=== PATIENT | male | born 1990 | race African-American/Black ===

== ENCOUNTER 2019-10-24 22:00 | Emergency (ER) | payer BC, OTHER ==
[2019-10-25] MEDS ORDERED: HYDROCODONE/APAP 10/325 TAB ONE (01:20)
--- NOTE | 2019-10-25 01:40 | ER ---
Nurse's Notes [facility] Name: Jarocho Hall Age: 29 yrs Sex: Male : 1990 Arrival Date: 10/24/2019 Time: 22:01 Bed 15 Private MD: Diagnosis: Pain in ankle and joints of foot Presentation: 10/24 22:03 Presenting complaint: Patient states: "I got arthritis in my ankle, I've been to 2 aj1 doctors and got a steroid shot, but today I can't put any pressure on it, its real tender where the foot and the caal connects" Denies any recent injury to left ankle. Transition of care: patient was not received from another setting of care. Onset of symptoms was 2019. Risk Assessment: Do you want to hurt yourself or someone else? Patient reports no desire to harm self or others. Initial Sepsis Screen: Does the patient meet any 2 criteria? HR > 90 bpm. No. Patient's initial sepsis screen is negative. Does the patient have a suspected source of infection? No. Patient's initial sepsis screen is negative. Care prior to arrival: None. 22:03 Method Of Arrival: Wheelchair aj 22:03 Acuity: SHIRLEY 4 aj1 Triage Assessment: 22:05 General: Appears in no apparent distress. comfortable, Behavior is calm, cooperative, aj1 appropriate for age. Pain: Complains of pain in anterior aspect of left ankle. Neuro: Level of Consciousness is awake, alert, obeys commands. Cardiovascular: Patient's skin is warm and dry. Respiratory: Airway is patent Respiratory effort is even, unlabored, Respiratory pattern is regular, symmetrical. Historical: - Allergies: 22:05 No Known Allergies; aj1 - PMHx: 22:05 pre-diabetic; aj1 - Immunization history:: Flu vaccine is not up to date. - Social history:: Smoking status: Patient reports the use of cigarette tobacco products, denies chronic smoking, but will smoke occasionally. - Ebola Screening: : Patient denies travel to an Ebola-affected area in the 21 days before illness onset. Screenin/18 03:33 Abuse screen: Denies threats or abuse. Nutritional screening: No deficits noted. vc Tuberculosis screening: No symptoms or risk factors identified. Fall Risk None identified. Assessment: 10/24 23:30 General: Appears in no apparent distress. uncomfortable, Behavior is calm, cooperative. vc Pain: Complains of pain in anterior aspect of left ankle Pain currently is 0 out of 10 on a pain scale. at worst was 8 out of 10 on a pain scale. Neuro: Level of Consciousness is awake, alert, obeys commands, Oriented to person, place, time. Cardiovascular: Capillary refill < 3 seconds Patient's skin is warm and dry. Respiratory: Respiratory effort is even, unlabored. GI: No signs and/or symptoms were reported involving the gastrointestinal system. : No deficits noted. EENT: No signs and/or symptoms were reported regarding the EENT system. Derm: Skin is intact, is healthy with good turgor, Skin is dry. Musculoskeletal: Reports pain in anterior aspect of left ankle. 10/25 00:11 Reassessment:. vc 00:15 Reassessment:. Reassessment: Patient and/or family updated on plan of care and expected vc duration. Pain level reassessed. Patient states symptoms have improved. 01:17 Reassessment: Patient complaint of pain to ankle, Provider notified; verbal order for lp1 Reva 10-325 x1 PO. 01:30 Reassessment: Patient is alert, oriented x 3, equal unlabored respirations, skin vc warm/dry/pink. Patient states feeling better. Patient states symptoms have improved. Vital Signs: 10/24 22:05 BP 144 / 92; Pulse 93; Resp 18; Temp 97.8; Pulse Ox 97% on R/A; Weight 136.08 kg (R); aj1 Height 5 ft. 10 in. (177.80 cm) (R); Pain 8/10; 10/25 00:06 BP 131 / 87; Pulse 92; Resp 18; Pulse Ox 97% on R/A; Pain 8/10; vc 01:00 BP 131 / 87; Pulse 79; Resp 15; Pulse Ox 97% on R/A; Pain 8/10; vc 10/24 22:05 Body Mass Index 43.05 (136.08 kg, 177.80 cm) aj1 ED Course: 10/24 22:01 Patient arrived in ED. cl3 22:05 Triage completed. aj1 22:05 Arm band placed on Patient placed in waiting room, Patient notified of wait time. aj1 23:00 Patient has correct armband on for positive identification. vc 23:36 Mickail, Patrice, PA is PHCP. [facility] 23:36 David Avalos MD is Attending Physician. m 23:54 Ankle Left 3 View XRAY In Process Unspecified. EDMS 23:58 Casi Padilla, RN is Primary Nurse. vc 10/25 01:39 Ludin Reardon MD is Referral Physician. [facility] 01:47 No provider procedures requiring assistance completed. Patient did not have IV access vc during this emergency room visit. Administered Medications: 01:19 Drug: Reva 10 mg-325 mg 1 tabs Route: PO; lp1 Outcome: 01:40 Discharge ordered by MD. [facility] 01:47 Discharged to home via wheelchair, with significant other. vc 01:47 Condition: good 01:47 Discharge instructions given to patient, significant other, Instructed on discharge instructions, follow up and referral plans. medication usage, Demonstrated understanding of instructions, follow-up care, medications, Prescriptions given X 1. 01:48 Patient left the ED. vc Signatures: Dispatcher [employer] EDNV Nurys Gonzalez RN RN aj1 Patrice Jones PA PA [facility] Jessica Anna RN RN lp1 Trey Cedeno cl3 Casi Padilla RN RN vc Corrections: (The following items were deleted from the chart) 03:33 00:06 Pulse 92bpm; Pulse Ox 96% RA; Pain 8/10; vc vc
--- NOTE | 2019-10-25 01:40 | EDPHYS ---
Physician Documentation [facility] Name: Jarocho Hall Age: 29 yrs Sex: Male : 1990 Arrival Date: 10/24/2019 Time: 22:01 Bed 15 Private MD: ED Physician David Avalos HPI: 10/25 01:33 This 29 yrs old Black Male presents to ER via Wheelchair with complaints of Ankle jmm Swelling. 01:33 The patient presents with an injury, pain. Onset: The symptoms/episode began/occurred jmm acutely. Associated signs and symptoms: Pertinent positives: swelling, Pertinent negatives: fever. This is a 29 year old male with a history of dm that presents to the ED with complaints of left ankle swelling. Patient has had intermittent episode of ankle swelling. Denies fever, increased pain. Has been evaluated by podiatry in the past. . Historical: - Allergies: 10/24 22:05 No Known Allergies; aj1 - PMHx: 22:05 pre-diabetic; aj1 - Immunization history:: Flu vaccine is not up to date. - Social history:: Smoking status: Patient reports the use of cigarette tobacco products, denies chronic smoking, but will smoke occasionally. - Ebola Screening: : Patient denies travel to an Ebola-affected area in the 21 days before illness onset. ROS: 10/25 01:33 Constitutional: Negative for fever, chills, and weight loss, Cardiovascular: Negative jmm for chest pain, palpitations, and edema, Respiratory: Negative for shortness of breath, cough, wheezing, and pleuritic chest pain. MS/extremity: Positive for pain, swelling. All other systems are negative. Exam: 01:33 Constitutional: This is a well developed, well nourished patient who is awake, alert, jmm and in no acute distress. Head/Face: atraumatic. Eyes: EOMI, no conjunctival erythema appreciated ENT: Moist Mucus Membranes Neck: Trachea midline, Supple Chest/axilla: Normal chest wall appearance and motion. Cardiovascular: Regular rate and rhythm. No edema appreciated Respiratory: Normal respirations, no respiratory distress appreciated Abdomen/GI: Non distended, soft Back: Normal ROM Skin: General appearance color normal 01:33 Musculoskeletal/extremity: swelling noted to the left ankle, non tender to palpation, full dorsalis pulse, compartments are soft, NVI. 01:33 Skin: Appearance: Color: normal in color. 01:33 Neuro: Orientation: is normal, Mentation: is normal, Memory: is normal. 01:33 Psych: Behavior/mood is pleasant, cooperative. Vital Signs: 10/24 22:05 BP 144 / 92; Pulse 93; Resp 18; Temp 97.8; Pulse Ox 97% on R/A; Weight 136.08 kg (R); aj1 Height 5 ft. 10 in. (177.80 cm) (R); Pain 8/10; 10/25 00:06 BP 131 / 87; Pulse 92; Resp 18; Pulse Ox 97% on R/A; Pain 8/10; vc 01:00 BP 131 / 87; Pulse 79; Resp 15; Pulse Ox 97% on R/A; Pain 8/10; vc 10/24 22:05 Body Mass Index 43.05 (136.08 kg, 177.80 cm) aj1 MDM: 00:50 Patient medically screened. [facility] 01:33 Data reviewed: vital signs, nurses notes. Counseling: I had a detailed discussion with iggy the patient and/or guardian regarding: the historical points, exam findings, and any diagnostic results supporting the discharge/admit diagnosis, the need for outpatient follow up, to return to the emergency department if symptoms worsen or persist or if there are any questions or concerns that arise at home. ED course: Patient is alert and non toxic in appearance. I do not suspect spetic joint, ankle is non erythematous. Pain is mainly elicited on weight bearing. Patient advised to follow up with ortho for reevaluation. Patient otherwise given strict return precautions. Patient understood and agrees with the plan of care. . 10/24 23:30 Order name: Ankle Left 3 View XRAY fc Administered Medications: 01:19 Drug: [place] 10 mg-325 mg 1 tabs Route: PO; lp1 Disposition: 06:32 Co-signature as Attending Physician, David Avalos MD. pkl Disposition: 10/25/19 01:40 Discharged to Home. Impression: Pain in ankle and joints of foot. - Condition is Stable. - Discharge Instructions: Ankle Pain. - Prescriptions for Ibuprofen 800 mg Oral Tablet - take 1 tablet by ORAL route every 8 hours As needed take with food; 30 tablet. - Medication Reconciliation Form, Thank You Letter, Antibiotic Education, Prescription Opioid Use form. - Follow up: Ludin Reardon MD; When: 2 - 3 days; Reason: Recheck today's complaints, Continuance of care, Re-evaluation by your physician. Signatures: Dispatcher [employer] Nurys Galss, ALVIN RN aj1 David Avalos MD MD pkl Mickail, Joel, PA PA jmm Pena, Laura, RN RN lp1 Casi Padilla RN RN vc Corrections: (The following items were deleted from the chart) 01:48 01:40 10/25/2019 01:40 Discharged to Home. Impression: Pain in ankle and joints of vc foot. Condition is Stable. Forms are Medication Reconciliation Form, Thank You Letter, Antibiotic Education, Prescription Opioid Use. Follow up: Dr. Ludin Reardon; When: 2 - 3 days; Reason: Recheck today's complaints, Continuance of care, Re-evaluation by your physician. iggy
[2019-10-25 02:01] VITALS: BP 144/92; TEMP 97.8
[2019-10-25 02:02] VITALS: O2SAT 96
--- NOTE | 2019-10-25 07:36 | RAD REPORT ---
EXAM DESCRIPTION: RAD - Ankle Left 3 View -10/24/2019 11:53 pm CLINICAL HISTORY: Left ankle pain FINDINGS: No fracture or dislocation is seen. Soft tissue swelling. No bony destructive lesion
== END 2019-10-25 01:48 | disposition home or self-care (01) ==
LOC: ER 22:00
DX: M25.572 Pain in left ankle and joints of left foot (principal); Z72.0 Tobacco use
CPT/HCPCS: 99283

== ENCOUNTER 2020-07-14 18:23 | Inpatient (IN) | payer BC, SELFPAY ==
[2020-07-14] MEDS ORDERED: NA CHLORIDE 0.9% 2,000 ML ONE (19:03)
[2020-07-14] MEDS ORDERED: INSULIN -REGULAR HUMAN 50 UNIT/0.5 ML ML ONE ×3 (19:27→21:48)
[2020-07-14 19:33] LABS: Blood Gas Oxyhemoglobin 93.5 % (94-97); Blood O2 Saturation 97.1 % (92-98.5)
[2020-07-14 19:47] LABS: Absolute Lymphocytes (CBC) 1.3 K/uL (0.7-4.9); Basophils % 0.5 % (0-1.3); Hematocrit 54.5 % (39.6-49.0); Lymphocytes % 8.4 % (15.3-44.8); MPV 11.1 fL (7.6-11.3); RBC Red Blood Cell Count 7.09 M/uL (4.33-5.43)
--- NOTE | 2020-07-14 19:58 | RAD REPORT ---
EXAM DESCRIPTION: CT - Head Brain Wo Cont - 07/14/2020 7:44 pm CLINICAL HISTORY: CONFUSED Headache, drowsiness COMPARISON: No comparisons TECHNIQUE: All CT scans are performed using dose optimization technique as appropriate and may inclu de automated exposure control or mA/KV adjustment according to patient size. FINDINGS: No intracranial hemorrhage, hydrocephalus or extra-axial fluid collection.No areas of brai n edema or evidence of midline shift. The paranasal sinuses and mastoids are clear. The calvarium is intact. IMPRESSION: No acute intracranial abnormality.
[2020-07-14] MEDS ORDERED: NA CHLORIDE 0.9% 1,000 ML ONE (21:37)
[2020-07-14] MEDS ORDERED: NA CHLORIDE 0.9% 100 ML IV ONE ×2 (21:43→21:49)
[2020-07-14 21:57] LABS: ALT/SGPT 26 U/L (12-78); AST/SGOT 11 U/L (15-37); Albumin 3.4 g/dL (3.4-5.0); Alkaline Phosphatase 151 U/L (45-117); BUN Blood Urea Nitrogen 33 mg/dL (7-18); Bilirubin Direct 0.1 mg/dL (0-0.2); Bilirubin Total 0.4 mg/dL (0.2-1.0); Lipase 177 U/L (73-393); Protein, Total 8.9 g/dL (6.4-8.2); Sodium Level 134 mmol/L (136-145); Troponin I < 0.02 ng/mL (0.0-0.045)
[2020-07-14 21:58] LABS: Bicarbonate 9 mmol/L (21-32); Glucose Level 637 mg/dL (74-106); Potassium 6.1 mmol/L (3.5-5.1)
--- NOTE | 2020-07-14 22:13 | EDPHYS ---
Physician Documentation [facility] Name: Jarocho Hall Age: 29 yrs Sex: Male : 1990 Arrival Date: 07/14/2020 Time: 18:27 Bed 16 Private MD: ED Physician Francis Aguilar HPI: 07/14 18:50 This 29 yrs old Black Male presents to ER via Wheelchair with complaints of General cp Weakness. 18:50 The patient or guardian reports hyperglycemia, that was potentially precipitated by not cp taking medications. 18:50 Onset: The symptoms/episode began/occurred gradually, and became worse 2 day(s) ago. cp Associated signs and symptoms: Pertinent positives: polydipsia, polyphagia, polyuria. Current symptoms: In the emergency department the patient's symptoms have worsened, mildly, is less alert. Historical: - Allergies: 20:23 No Known Allergies; ll2 - Home Meds: 18:55 Metformin Oral [Active]; ca1 - PMHx: 18:55 Diabetes - NIDDM; ca1 - Immunization history:: Adult Immunizations up to date. - Social history:: Smoking status: unknown. ROS: 19:00 Constitutional: Negative for body aches, chills, fever, poor PO intake, weight loss. cp 19:00 Eyes: Negative for injury, pain, redness, and discharge. cp 19:00 ENT: Negative for ear pain, sore throat, difficulty swallowing, difficulty handling secretions. 19:00 Cardiovascular: Negative for chest pain, edema, palpitations. 19:00 Respiratory: Negative for cough, shortness of breath, wheezing. 19:00 Abdomen/GI: Negative for abdominal pain, nausea, vomiting, and diarrhea. 19:00 : Negative for burning with urination. 19:00 Skin: Negative for rash. 19:00 Neuro: Positive for altered mental status, dizziness, Negative for headache, loss of consciousness, seizure activity. 19:00 Endocrine: Positive for polydipsia, polyphagia, polyuria. 19:00 All other systems are negative. Exam: 19:05 Constitutional: The patient appears in no acute distress, non-diaphoretic, non-toxic, cp well developed, well nourished, obese. 19:05 Head/Face: Normocephalic, atraumatic. cp 19:05 Eyes: Periorbital structures: appear normal, Pupils: equal, round, and reactive to light and accomodation, Extraocular movements: intact throughout, Conjunctiva: normal, no exudate, no injection, Sclera: no appreciated abnormality, Lids and lashes: appear normal, bilaterally. 19:05 ENT: External ear(s): are unremarkable, Nose: is normal, Mouth: is normal, Posterior pharynx: Airway: no evidence of obstruction, patent. 19:05 Neck: ROM/movement: is normal, is supple, without pain, no range of motions limitations. 19:05 Chest/axilla: Inspection: normal, Palpation: is normal, no crepitus, no tenderness. 19:05 Cardiovascular: Rate: tachycardic, Rhythm: regular, Edema: is not appreciated, JVD: is not appreciated. 19:05 Respiratory: the patient does not display signs of respiratory distress, Respirations: normal, no use of accessory muscles, no retractions, labored breathing, is not present, Breath sounds: are clear throughout, no decreased breath sounds, no stridor, no wheezing. 19:05 Abdomen/GI: Inspection: abdomen appears normal, Bowel sounds: active, all quadrants, Palpation: abdomen is soft and non-tender, in all quadrants. 19:05 Skin: no rash present. 19:05 Neuro: Orientation: to person, place, situation, Mentation: responsive to voice able to follow commands, slow to respond, Cerebellar function: Romberg testing is negative, normal finger to nose testing, Motor: moves all fours, strength is normal, Sensation: no obvious gross deficits. 19:40 ECG was reviewed by the Attending Physician. cp Vital Signs: 18:37 BP 150 / 97; Pulse 137; Resp 20 S; Temp 98.3(O); Pulse Ox 100% on R/A; Height 5 ft. 10 ca1 in. (177.80 cm) (R); 19:09 BP 152 / 79; Pulse 125; Resp 25; Pulse Ox 96% ; ll2 MDM: 18:54 Patient medically screened. cp 19:00 Differential diagnosis: DKA, sepsis, COVID-19. cp 22:09 Data reviewed: vital signs, nurses notes, lab test result(s), EKG, and as a result, I cp will admit patient. Test interpretation: by ED physician or midlevel provider: ECG. Response to treatment: the patient's symptoms have mildly improved after treatment. 22:10 Physician consultation: Yony HILLS was contacted at 22:10, regarding cp admission, to the ICU, patient's condition, and will see patient in ED, shortly. 07/14 18:52 Order name: Glucose; Complete Time: 22:06 tw2 07/14 18:55 Order name: Glucose, Ancillary Testing; Complete Time: 18:58 EDMS 07/14 18:58 Order name: Ketone, Serum; Complete Time: 22:06 cp 07/14 18:58 Order name: Basic Metabolic Panel; Complete Time: 22:06 cp 07/14 18:58 Order name: CBC with Diff; Complete Time: 20:02 cp 07/14 20:02 Interpretation: Normal except: WBC 15.9; RBC 7.09; HCT 54.5; MCV 76.9; MCH 23.1; MCHC cp 30.1; AGUSTÍN% 83.0; LYM% 8.4; NEUT A 13.2. 07/14 18:58 Order name: Hepatic Function; Complete Time: 22:06 cp 07/14 18:58 Order name: Lipase; Complete Time: 22:06 07/14 18:58 Order name: ABG; Complete Time: 20:02 cp 07/14 18:58 Order name: Urine Microscopic Only 07/14 18:58 Order name: UDS 07/14 18:58 Order name: Troponin I; Complete Time: 22:06 cp 07/14 22:04 Order name: Glucose, Ancillary Testing; Complete Time: 22:06 EDMS 07/14 22:40 Order name: Glucose, Ancillary Testing; Complete Time: 23:47 EDMS 07/14 22:42 Order name: Glucose; Complete Time: 23:47 ea 07/14 18:43 Order name: Accucheck Blood Glucose; Complete Time: 18:52 cp 07/14 18:58 Order name: IV; Complete Time: 19:03 cp 07/14 18:58 Order name: IV; Complete Time: 19:11 07/14 18:58 Order name: Labs collected and sent; Complete Time: 19:03 cp 07/14 18:58 Order name: CT Head Brain wo Cont; Complete Time: 20:02 cp 07/14 20:02 Interpretation: Report reviewed. 07/14 18:58 Order name: EKG; Complete Time: 18:59 cp 07/14 18:58 Order name: EKG - Nurse/Tech; Complete Time: 21:05 cp 07/14 23:08 Order name: Acetone Level; Complete Time: 23:47 EDMS 07/14 23:24 Order name: Basic Metabolic Panel; Complete Time: 23:47 EDMS 07/15 00:02 Order name: Glucose, Ancillary Testing EDMS 07/14 19:18 Order name: Labs - recollect needed: Green Top hemolyzed; Complete Time: 19:25 iw EC:40 Rate is 128 beats/min. Rhythm is regular. SC interval is normal. QRS interval is cp normal. QT interval is normal. T waves are Inverted in lead III. Interpreted by me. Reviewed by me. Administered Medications: 19:00 Drug: NS 0.9% 1000 ml Route: IV; Rate: 1 bolus; Site: right antecubital; tw2 19:03 Drug: NS 0.9% 1000 ml Route: IV; Rate: 1 bolus; Site: left antecubital; tw2 19:18 Drug: Insulin Regular Human 10 units {Co-Signature: bb3 (Audrey Bailey).} Route: Sub-Q; ll2 Site: abdomen; 19:25 Follow up: Response: No adverse reaction ll2 21:48 Drug: Insulin Drip - (Insulin Regular Human 100 units, NS 0.9% 100 ml) {Co-Signature: ll2 ea (Ellie Spaulding RN).} Route: IV; Rate: 7 calculated rate; Site: right hand; 22:00 Drug: NS 0.9% 1000 ml Route: IV; Rate: 1 bolus; Site: left antecubital; ll2 Point of Care Testing: Blood Glucose: 21:56 Blood Glucose: High (>450 mg/dL); ll2 22:29 Blood Glucose: High (>450 mg/dL); ll2 23:48 Blood Glucose: High (>450 mg/dL); ll2 Ranges: Critical Glucose Levels:Adult <50 mg/dl or >400 mg/dl <40 mg/dl or >180 mg/dl Disposition: 07/15 07:16 Co-signature as Attending Physician, Francis Aguilar MD. rn Disposition: 07/14/20 22:12 Hospitalization ordered by Yony Cash for Inpatient Admission. Preliminary diagnosis are Diabetes mellitus due to underlying condition with ketoacidosis without coma, Acute kidney failure. - Bed requested for Intensive Care Unit. - Status is Inpatient Admission. ll2 - Condition is Serious. - Problem is new. - Symptoms have improved. Signatures: Dispatcher [employer] EDTatyana Whittington, RN RN iw Francis Aguilar MD MD rn Page, Corey, PA PA Miya Owen RN RN tw2 Belinda Diaz RN RN ca1 Sharon Mendez RN RN ll2 Audrey Bailey bb3 Ellie Spaulding RN, ea Corrections: (The following items were deleted from the chart) 07/14 23:49 07/13 19:40 ECG was reviewed by the Attending Physician. [facility] 07/14 23:49 07/13 19:40 Rate is 128 beats/min. Rhythm is regular. SC interval is normal. QRS cp interval is normal. QT interval is normal. T waves are Inverted in lead III. Interpreted by me. Reviewed by me. 07/15 00:11 07/14 22:12 Hospitalization Ordered by Yony HILLS for Inpatient Admission. ll2 Preliminary diagnosis is Diabetes mellitus due to underlying condition with ketoacidosis without coma; Acute kidney failure. Bed requested for Intensive Care Unit. Status is Inpatient Admission. Condition is Serious. Problem is new. Symptoms have improved. cp
--- NOTE | 2020-07-14 22:13 | ER ---
Nurse's Notes [facility] Name: Jarocho Hall Age: 29 yrs Sex: Male : 1990 Arrival Date: 07/14/2020 Time: 18:27 Bed 16 Private MD: Diagnosis: Diabetes mellitus due to underlying condition with ketoacidosis without coma;Acute kidney failure Presentation: 07/14 18:37 Chief complaint:. Chief complaint: Patient states: Feeling bad since 2 weeks ago. 2 ca1 days ago, increase thirst, urination and hunger. Pt reports NIDDM. BGL checked in triage HI. Reports feeling dizzy and weak. Pt appears lethargic. Denies cough, SOB and fever. Denies pain. Denies urinary symptoms. 18:37 Method Of Arrival: Wheelchair ca1 18:37 Acuity: SHIRLEY 2 ca1 18:52 Coronavirus screen: Client denies travel out of the [place] in the last 14 days. At this ca1 time, the client does not indicate any symptoms associated with coronavirus-19. Ebola Screen: Patient negative for fever greater than or equal to 101.5 degrees Fahrenheit, and additional compatible Ebola Virus Disease symptoms Patient denies exposure to infectious person. Patient denies travel to an Ebola-affected area in the 21 days before illness onset. No symptoms or risks identified at this time. Initial Sepsis Screen: Does the patient meet any 2 criteria? Altered Mental Status. HR > 90 bpm. Yes Does the patient have a suspected source of infection? No. Patient's initial sepsis screen is negative. Risk Assessment: Do you want to hurt yourself or someone else? Patient reports no desire to harm self or others. Onset of symptoms was July 14, 2020. Triage Assessment: 07/15 00:11 General: Appears in no apparent distress. Behavior is calm, cooperative, appropriate ll2 for age. Historical: - Allergies: 07/14 20:23 No Known Allergies; ll2 - Home Meds: 18:55 Metformin Oral [Active]; ca1 - PMHx: 18:55 Diabetes - NIDDM; ca1 - Immunization history:: Adult Immunizations up to date. - Social history:: Smoking status: unknown. Screenin:43 Abuse screen: Denies threats or abuse. Nutritional screening: No deficits noted. tw2 Tuberculosis screening: No symptoms or risk factors identified. Fall Risk None identified. Assessment: 18:50 Reassessment: provider at bedside at this time. tw2 20:22 Reassessment: pt's family states there are no known drug or food allergies. ll2 21:52 Reassessment: FSBS reads HIGH, above 500. ERD notified. ll2 22:00 Reassessment: lab called with critical lab results, K- 60.1 bicarb-9, Glucose 637. ERD ll2 notified. 22:11 Reassessment: weight obtained, 322.96. ll2 22:29 Reassessment: ERP notified of weight, order obtained to increase insulin drip from 7 to ll2 10. 07/15 00:10 Reassessment: report given to ALVIN Cano. ll2 00:10 Pain: Denies pain. ll2 Vital Signs: 07/14 18:37 BP 150 / 97; Pulse 137; Resp 20 S; Temp 98.3(O); Pulse Ox 100% on R/A; Height 5 ft. 10 ca1 in. (177.80 cm) (R); 19:09 BP 152 / 79; Pulse 125; Resp 25; Pulse Ox 96% ; ll2 ED Course: 18:27 Patient arrived in ED. ag5 18:42 Triage completed. ca1 18:43 Miya Owen RN is Primary Nurse. tw2 18:43 Jordan Sanabria PA is PHCP. cp 18:43 Francis Aguilar MD is Attending Physician. cp 18:43 Placed in gown. Bed in low position. Adult w/ patient. Pulse ox on. NIBP on. tw2 18:48 Inserted saline lock: 20 gauge in left antecubital area, using aseptic technique. Blood tw2 collected. 18:51 Arm band placed on. tw2 19:05 Report given to ALVIN Argueta. tw2 19:11 Inserted saline lock: 22 gauge in right hand, using aseptic technique. tw2 19:44 CT Head Brain wo Cont In Process Unspecified. EDMS 22:10 Yony Cash PA is Hospitalizing Provider. cp 07/15 00:11 No provider procedures requiring assistance completed. Patient admitted, IV remains in ll2 place. Administered Medications: 07/14 19:00 Drug: NS 0.9% 1000 ml Route: IV; Rate: 1 bolus; Site: right antecubital; tw2 19:03 Drug: NS 0.9% 1000 ml Route: IV; Rate: 1 bolus; Site: left antecubital; tw2 19:18 Drug: Insulin Regular Human 10 units {Co-Signature: bb3 (Audrey Bailey).} Route: Sub-Q; ll2 Site: abdomen; 19:25 Follow up: Response: No adverse reaction ll2 21:48 Drug: Insulin Drip - (Insulin Regular Human 100 units, NS 0.9% 100 ml) {Co-Signature: ll2 ea (Ellie Spaulding RN).} Route: IV; Rate: 7 calculated rate; Site: right hand; 22:00 Drug: NS 0.9% 1000 ml Route: IV; Rate: 1 bolus; Site: left antecubital; ll2 Point of Care Testing: Blood Glucose: 21:56 Blood Glucose: High (>450 mg/dL); ll2 22:29 Blood Glucose: High (>450 mg/dL); ll2 23:48 Blood Glucose: High (>450 mg/dL); ll2 Ranges: Outcome: 22:12 Decision to Hospitalize by Provider. cp 07/15 00:10 Admitted to ICU accompanied by nurse, via wheelchair, Report called to ALVIN Cano ll2 Condition: stable Instructed on the need for admit. 00:11 Patient left the ED. ll2 Signatures: Dispatcher [employer] EDMS Jordan Sanabria PA PA cp Miya Owen, RN RN tw2 Belinda Diaz RN RN ca1 Abel, Abner ag5 Sharon Mendez RN RN ll2 Audrey Bailey bb3 Ellie Spaulding RN ea Corrections: (The following items were deleted from the chart) 07/14 18:54 18:37 Chief complaint: Patient states: Feeling bad since 2 weeks ago. 2 days ago, ca1 increase thirst, urination and hunger. Pt reports NIDDM. BGL checked in triage HI. Reports feeling dizzy and week ca1
--- NOTE | 2020-07-14 22:46 | P.HP ---
Certification for Inpatient Patient admitted to: Inpatient With expected LOS: >2 Midnights Patient will require the following post-hospital care: None Practitioner: I am a practitioner with admitting privileges, knowledge of patient current condition, hospital course, and medical plan of care. Services: Services provided to patient in accordance with Admission requirements found in Title 42 Section 412.3 of the Code of Federal Regulations Patient History Date of Service: 07/14/20 Reason for admission: DKA History of Present Illness: 29-year-old male with a past medical history of type 2 diabetes and noncompliance with medications who also smokes a pack of cigarettes a day and drinks daily is brought to the emergency room with complaints of feeling "bad" for the past 2 weeks. States that he is a diabetic but does not take his medications and has not taken his medications for quite some time. Also admits to smoking daily and drinking daily. Patient is also morbidly obese. In the emergency room patient is alert and oriented x3. He is in no distress. Family member bedside. Lab work shows a white cell count of 15.9, sodium of 134, potassium of 6.1, chlorine of 97, a BUN of 33, creatinine of 2.59 with a GFR of 35. Blood glucose was measured at 637 with large acetones noted. ABG shows acidosis with a pH of 7.16, pCO2 of 13.6, PO2 130 and a bicarb of 4.6. Calculated anion gap of 28. Patient is in DKA. Patient will be admitted to the ICU and further evaluated. Home medications list reviewed: No - Past Medical/Surgical History Diabetic: Yes -: Type 2 diabetes mellitus -: Noncompliance with medications -: Nicotine dependence -: None Psychosocial/ Personal History: Lives at home. - Family History Family History: Reviewed- Non-Contributory - Social History Smoking Status: Current every day smoker Alcohol use: Yes CD- Drugs: No Caffeine use: Yes Place of Residence: Home Review of Systems General: As per HPI Eyes: Unremarkable ENT: Unremarkable Respiratory: Unremarkable Cardiovascular: Unremarkable Gastrointestinal: Nausea, As per HPI Genitourinary: Frequency, As per HPI Musculoskeletal: Unremarkable Integumentary: Unremarkable Neurological: Unremarkable Lymphatics: Unremarkable Physical Examination - Vital Signs Temperature: 98.3 F Blood Pressure: 152/79 Pulse: 125 Respirations: 25 Pulse Ox (%): 96 (RA) - Physical Exam General: Alert, In no apparent distress, Oriented x3 HEENT: Atraumatic, Normocephalic, PERRLA, Mucous membr. moist/pink Neck: Supple, No Thyromegaly, Other (Trachea midline) Respiratory: Clear to auscultation bilaterally, Normal air movement Cardiovascular: No edema, Normal pulses, Normal S1 S2 Capillary refill: <2 Seconds Gastrointestinal: Normal bowel sounds, Soft and benign, Non-distended Musculoskeletal: No clubbing, No swelling, No contractures, No erythema Integumentary: No rashes, No breakdown, No significant lesion Neurological: Normal gait, Normal speech, Normal strength at 5/5 x4 extr, Normal tone - Studies Laboratory Data (last 24 hrs) 07/14/20 21:20: Sodium 134 L, Potassium 6.1 H*, BUN 33 H, Creatinine 2.59 H, Glucose 637 H*, Total Bilirubin 0.4, AST 11 L, ALT 26, Alkaline Phosphatase 151 H, Troponin I < 0.02, Lipase 177 07/14/20 21:20: Glucose 625 H* 07/14/20 18:49: WBC 15.9 H, Hgb 16.4, Hct 54.5 H, Plt Count 382 Assessment and Plan - Plan Impression: Diabetic ketoacidosis with a history of noncompliance with diabetic medications: Acute kidney injury: Type 2 diabetes mellitus: Nicotine dependence: Alcohol abuse: Plan: Diabetic ketoacidosis with a history of noncompliance with diabetic medications: ABG shows patient is acidotic with a pH of 7.16. Will be placed in ICU. Started on an insulin drip, continue IV fluids. Patient received 3 L in the ER. Will place on telemetry. Check chemistries Q 4 hr Monitor blood glucose. Acute kidney injury: Patient noted have an elevated creatinine of 2.59. Will continue IV fluids as above. Monitor creatinine levels. Type 2 diabetes mellitus: History of type 2 diabetes with noncompliance with medications. Patient states he has not taken his diabetic medications for several months. Will resume all medications once verified. Check blood glucose Q hourly. Continue sliding scale insulin. Nicotine dependence: Admits to smoking half pack of cigarettes per day. Counseled. Alcohol abuse: Admits to drinking beers every day. Counseled. Discharge Plan: Home Plan to discharge in: Greater than 2 days - Advance Directives Does patient have a Living Will: No Does patient have a Durable POA for Healthcare: No - Code Status/Comfort Care Code Status Assessed: Yes Time Spent Managing Pts Care (In Minutes): 55
[2020-07-14] MEDS ORDERED: ONDANSETRON 4 MG/2 ML VIAL IV PRN (22:48)
[2020-07-14] MEDS: D5 0.45 NS 1,000 ML IV SCH (23:00)
[2020-07-14 23:21] LABS: BUN Blood Urea Nitrogen 37 mg/dL (7-18); Sodium Level 137 mmol/L (136-145)
[2020-07-14 23:22] LABS: Bicarbonate 6 mmol/L (21-32); Glucose Level 564 mg/dL (74-106)
[2020-07-15] MEDS: NACHLORIDE 0.45% 1,000 ML IV SCH ×5 (02:53→16:40)
[2020-07-15] MEDS ORDERED: NACHLORIDE 0.45% 1,000 ML IV ONE ×2 (03:05→06:17)
[2020-07-15 03:31] LABS: Absolute Lymphocytes (CBC) 1.6 K/uL (0.7-4.9); Basophils % 0.4 % (0-1.3); Lymphocytes % 7.6 % (15.3-44.8); MPV 9.8 fL (7.6-11.3); RBC Red Blood Cell Count 6.69 M/uL (4.33-5.43)
[2020-07-15 03:43] LABS: BUN Blood Urea Nitrogen 35 mg/dL (7-18); Glucose Level 337 mg/dL (74-106); HDL Cholesterol 34 mg/dL (40-60); Sodium Level 143 mmol/L (136-145)
[2020-07-15 03:44] LABS: Bicarbonate 12 mmol/L (21-32); Magnesium 2.9 mg/dL (1.8-2.4); Potassium 4.9 mmol/L (3.5-5.1)
[2020-07-15 03:54] LABS: LDL, Direct 168 mg/dL (100-129)
[2020-07-15 05:01] LABS: Blood Morphology Comment NOT SEEN (NOT SEEN); Platelet Estimate ADEQ
[2020-07-15] MEDS: D5 0.45 NS 1,000 ML IV SCH (05:40)
[2020-07-15] MEDS ORDERED: NA CHLORIDE 0.9% 250 ML ONE (05:52)
[2020-07-15 06:08] LABS: Urine Appearance CLEAR; Urine Blood 1+ (NEG); Urine Color YELLOW; Urine Glucose 3+ (NEG); Urine Protein 1+ (NEG); Urine Specific Gravity 1.025 (1.005-1.030); Urine Urobilinogen 0.2 mg/dL (0.2-1.0)
[2020-07-15] MEDS ORDERED: NA CHLORIDE 0.9% 500 ML ONE (06:17)
[2020-07-15] MEDS: CEFTRIAXONE/SWI 1gm 1 GM/10 ML SYR IV SCH (06:25)
[2020-07-15] MEDS: AZITHROMYCIN IV 500 MG in NA CHLORIDE 0.9% 250 ML IVPB SCH (06:32)
[2020-07-15 06:51] LABS: Urine Bilirubin 1+ (NEG)
[2020-07-15 07:06] LABS: Urine Bacteria <20 /HPF (NONE SEEN); Urine RBC NONE SEEN /HPF (NONE SEEN)
[2020-07-15 07:07] LABS: Urine Culture Reflex Order NOT NEEDED
[2020-07-15] MEDS ORDERED: INSULIN -REGULAR HUMAN 50 UNIT/0.5 ML ML SQ SCH (07:30)
[2020-07-15 07:45] LABS: BUN Blood Urea Nitrogen 31 mg/dL (7-18); Glucose Level 279 mg/dL (74-106); Sodium Level 144 mmol/L (136-145)
[2020-07-15 07:48] LABS: Bicarbonate 13 mmol/L (21-32); Potassium 4.6 mmol/L (3.5-5.1)
[2020-07-15] MEDS: INSULIN -REGULAR HUMAN 100 UNIT in NA CHLORIDE 0.9% 100 ML IV SCH ×2 (08:03→23:08)
--- NOTE | 2020-07-15 08:05 | RAD REPORT ---
EXAM DESCRIPTION: RAD - Chest Single View - 07/15/2020 5:28 am CLINICAL HISTORY: elevated WBC COMPARISON: None TECHNIQUE: AP portable chest image was obtained 07/15/2020 5:28 am . FINDINGS: Lungs are clear. Heart and vasculature are normal. No measurable pleural effusion and no p neumothorax. No acute bony abnormality seen. No acute aortic findings suspected. IMPRESSION: No acute cardiopulmonary process.
[2020-07-15] MEDS ORDERED: CEFTRIAXONE 1 GM/NS 50 ML 1 GM/50 ML BAG IV SCH (09:00)
[2020-07-15] MEDS: HEPARIN 5000 UNIT/ML 1 ML VIAL SQ SCH ×2 (10:02→20:20)
[2020-07-15] MEDS ORDERED: HEPARIN 5000 UNIT/ML 1 ML VIAL ONE ×2 (10:10→20:16)
--- NOTE | 2020-07-15 10:22 | P.PN ---
Subjective Date of Service: 07/15/20 Chief Complaint: DKA Subjective: Improving Physical Examination - Vital Signs Temperature: 98.2 F Blood Pressure: 142/96 Pulse: 135 Respirations: 22 Pulse Ox (%): 97 - Physical Exam General: In no apparent distress, Obese HEENT: Atraumatic, Normocephalic, PERRLA, EOMI Neck: Supple Respiratory: Clear to auscultation bilaterally, Normal air movement Cardiovascular: No edema, Normal pulses, Regular rate/rhythm, Normal S1 S2 Gastrointestinal: Normal bowel sounds, Soft and benign, Non-distended Musculoskeletal: No clubbing, No swelling, No contractures, No erythema, No tenderness, No warmth Integumentary: No rashes, No breakdown, No significant lesion, No tenderness/swelling, No erythema, No warmth, No cyanosis Neurological: Normal speech, Sensation intact, Normal affect - Studies Laboratory Data (last 24 hrs) 07/14/20 21:20: Sodium 134 L, Potassium 6.1 H*, BUN 33 H, Creatinine 2.59 H, Glucose 637 H*, Total Bilirubin 0.4, AST 11 L, ALT 26, Alkaline Phosphatase 151 H, Troponin I < 0.02, Lipase 177 07/14/20 21:20: Glucose 625 H* 07/14/20 18:49: WBC 15.9 H, Hgb 16.4, Hct 54.5 H, Plt Count 382 Assessment & Plan - Problems (Diagnosis) (1) DKA (diabetic ketoacidoses) Current Visit: Yes Status: Acute (2) Morbid obesity with BMI of 45.0-49.9, adult Current Visit: Yes Status: Acute (3) SARAH (acute kidney injury) Current Visit: Yes Status: Acute Physician Review Additional Text: Assessment Patient is a 29-year-old male with morbid obesity, diabetes mellitus noncompliant with medications. He is currently admitted with DKA. He is on insulin drip. Severe and rising leukocytosis on admission. Chest x-ray and UA negative to date. There is a blood culture pending DKA SIRS Tachycardia Medication noncompliance Morbid obesity PLAN CONTINUE ICU STAY PATIENT IS ON INSULIN INFUSION Monitor fingerstick hourly and BMP q.4 hr EKG Check lactic acidosis Follow-up blood cultures
--- NOTE | 2020-07-15 19:19 | P.CNS ---
Date of Consult: 07/15/20 Reason for Consult: SARAH Requesting Physician: Prince Tatianna Hess Chief Complaint: DKA History of Present Illness: 29 yo BM Obese, DM presented to the ER with two weeks of severe, progressive malaise in the setting of uncontrolled DM due to poor compliance with his medications. Poor historian. More history obtained from the girlfriend. 29-year-old male with a past medical history of type 2 diabetes and noncompliance with medications who also smokes a pack of cigarettes a day and drinks daily is brought to the emergency room with complaints of feeling "bad" for the past 2 weeks. States that he is a diabetic but does not take his medications and has not taken his medications for quite some time. Also admits to smoking daily and drinking daily. Patient is also morbidly obese. Allergies No Known Allergies Allergy (Verified 07/15/20 01:03) Home medications list reviewed: Yes Home Medications: NK [No Home Meds] 07/15/20 - Past Medical/Surgical History Diabetic: Yes -: Type 2 diabetes mellitus -: Noncompliance with medications -: Nicotine dependence -: None Psychosocial/ Personal History: Lives at home. - Family History Father Medical History: Hypertension, Diabetes Brother Medical History: Hypertension, Lung disease Notes: asthma Mother Medical History: Hypertension - Social History Smoking Status: Unknown if ever smoked Alcohol use: Yes CD- Drugs: No Caffeine use: No Place of Residence: Home Review of Systems 10-point ROS is otherwise unremarkable General: Weakness, Malaise Gastrointestinal: Nausea Neurological: Weakness Physical Examination Temp Pulse Resp BP Pulse Ox 98.5 F 118 H 22 H 137/91 H 99 07/15/20 18:00 07/15/20 18:00 07/15/20 18:00 07/15/20 18:00 07/15/20 18:00 General: Alert, Oriented x3, Cooperative HEENT: Atraumatic Neck: Supple Respiratory: Clear to auscultation bilaterally Cardiovascular: No edema, Regular rate/rhythm Gastrointestinal: Soft and benign, Non-distended Musculoskeletal: No clubbing, No contractures Integumentary: No rashes, No cyanosis Neurological: Normal speech Laboratory Data (last 24 hrs) 07/14/20 21:20: Sodium 134 L, Potassium 6.1 H*, BUN 33 H, Creatinine 2.59 H, Glucose 637 H*, Total Bilirubin 0.4, AST 11 L, ALT 26, Alkaline Phosphatase 151 H, Troponin I < 0.02, Lipase 177 07/14/20 21:20: Glucose 625 H* 07/14/20 18:49: WBC 15.9 H, Hgb 16.4, Hct 54.5 H, Plt Count 382 Imagings Data: EXAM DESCRIPTION: RAD - Chest Single View - 07/15/2020 5:28 am CLINICAL HISTORY: elevated WBC COMPARISON: None TECHNIQUE: AP portable chest image was obtained 07/15/2020 5:28 am . FINDINGS: Lungs are clear. Heart and vasculature are normal. No measurable pleural effusion and no pneumothorax. No acute bony abnormality seen. No acute aortic findings suspected. IMPRESSION: No acute cardiopulmonary process. Conclusions/Impression: A/ SARAH improving with IVF Hyponatremia Hyperkalemia Hypocalcemia CKD III with proteinuria DM II with DKA Morbid Obesity Nicotine dependence P/ Continue current POC and Medications. Continue aggressive IVF. Continue insulin gtt. No NSAIDs. AM labs. Daily weight. Thank you kindly for the consultation. Critical Care: Yes (>30min)
[2020-07-15 21:27] LABS: Potassium 4.2 mmol/L (3.5-5.1)
[2020-07-16] MEDS: NACHLORIDE 0.45% 1,000 ML IV SCH (00:22)
[2020-07-16] MEDS ORDERED: NACHLORIDE 0.45% 1,000 ML IV ONE (00:33)
[2020-07-16] MEDS: D5 0.45 NS 1,000 ML IV SCH ×4 (00:38→23:00)
[2020-07-16] MEDS ORDERED: D5 0.45 NS 1,000 ML IV ONE ×2 (00:49→16:35)
[2020-07-16 02:09] LABS: Potassium 4.1 mmol/L (3.5-5.1)
[2020-07-16 02:46] LABS: Barbiturates NEGATIVE (NEGATIVE); Benzodiazepines NEGATIVE (NEGATIVE); Cocaine NEGATIVE (NEGATIVE); METHAMPHETAM NEGATIVE (NEGATIVE); Methadone NEGATIVE (NEGATIVE); Opiates NEGATIVE (NEGATIVE); Phencyclidine NEGATIVE (NEGATIVE); THC Cannibis NEGATIVE (NEGATIVE)
[2020-07-16 05:53] LABS: Absolute Lymphocytes (CBC) 2.3 K/uL (0.7-4.9); Basophils % 0.5 % (0-1.3); Hematocrit 39.8 % (39.6-49.0); MPV 9.1 fL (7.6-11.3); RBC Red Blood Cell Count 5.55 M/uL (4.33-5.43)
[2020-07-16 05:58] LABS: Magnesium 2.4 mg/dL (1.8-2.4); Phosphorus 1.4 mg/dL (2.5-4.9)
[2020-07-16 06:00] LABS: Potassium 3.8 mmol/L (3.5-5.1)
[2020-07-16] MEDS: CEFTRIAXONE/SWI 1gm 1 GM/10 ML SYR IV SCH (06:17)
[2020-07-16] MEDS: AZITHROMYCIN IV 500 MG in NA CHLORIDE 0.9% 250 ML IVPB SCH (06:17)
[2020-07-16] MEDS ORDERED: CEFTRIAXONE/SWI 1gm 1 GM/10 ML SYR ONE (06:28)
[2020-07-16] MEDS: POTASS/SODIUM PHOSPHATE 1 PKT POWD.PACK PO SCH ×5 (07:00→14:00)
[2020-07-16] MEDS: HEPARIN 5000 UNIT/ML 1 ML VIAL SQ SCH ×2 (09:00→20:20)
[2020-07-16] MEDS ORDERED: HEPARIN 5000 UNIT/ML 1 ML VIAL ONE ×2 (09:07→20:26)
[2020-07-16] MEDS: DOCUSATE NA 100 MG CAP PO SCH ×2 (09:10→20:39)
[2020-07-16] MEDS: VITAMIN D 5,000 UNIT CAP PO SCH (09:10)
[2020-07-16] MEDS ORDERED: POTASSIUM PHOS 30 MM in NA CHLORIDE 0.9% 500 ML IV ONE (09:25)
[2020-07-16 09:56] LABS: Potassium 3.7 mmol/L (3.5-5.1)
--- NOTE | 2020-07-16 10:59 | P.PN ---
Subjective Date of Service: 07/16/20 Chief Complaint: DKA Subjective: Improving (Patient's DKA is improving. c/o of bilateral ankle joint pain when standing for too long.) Physical Examination - Vital Signs Temperature: 98.8 F Blood Pressure: 132/62 Pulse: 105 Respirations: 20 Pulse Ox (%): 99 - Physical Exam General: In no apparent distress, Cooperative, Other (sleeping) HEENT: Atraumatic, Normocephalic, EOMI Neck: Supple Respiratory: Clear to auscultation bilaterally, Normal air movement Cardiovascular: No edema, Normal pulses, Regular rate/rhythm, Normal S1 S2 Gastrointestinal: Normal bowel sounds, Soft and benign, Non-distended, No tenderness Musculoskeletal: No clubbing, No swelling, No contractures, No erythema, No tenderness, No warmth Integumentary: No rashes, No breakdown, No significant lesion, No tenderness/swelling, No erythema, No warmth, No cyanosis Neurological: Normal speech, Sensation intact, Normal affect Assessment & Plan - Problems (Diagnosis) (1) DKA (diabetic ketoacidoses) Current Visit: Yes Status: Acute (2) Morbid obesity with BMI of 45.0-49.9, adult Current Visit: Yes Status: Acute (3) SARAH (acute kidney injury) Current Visit: Yes Status: Acute Physician Review Additional Text: Assessment Patient is a 29-year-old male with morbid obesity, diabetes mellitus noncompliant with medications. He is currently admitted with DKA. He is on insulin drip. Severe and rising leukocytosis on admission. Chest x-ray, blood cultures and UA negative to date. DKA SIRS with organ damage SARAH Medication noncompliance Morbid obesity PLAN Patient is still on insulin drip DKA likely resolved given today's improved. Persistent high AG most likely for concurrent SARAH If ketosis resolved, I will transition him to scheduled insulin Until then, continue monitoring fingerstick hourly and BMP q.4 hr
--- NOTE | 2020-07-16 11:59 | RAD REPORT ---
EXAM DESCRIPTION: RAD - Ankle Right 3 View - 07/16/2020 11:42 am CLINICAL HISTORY: joint pain Pain and swelling. COMPARISON: Ankle Left 3 View dated 10/24/2019 FINDINGS: Mild arthritic changes are present involving the tibiotalar joint. Mild soft tissue swelli ng about the ankle. Prominent posterior calcaneal spur is evident. No acute fracture or dislocation s een.
--- NOTE | 2020-07-16 11:59 | RAD REPORT ---
EXAM DESCRIPTION: RAD - Ankle Left 3 View - 07/16/2020 11:42 am CLINICAL HISTORY: joint pain Pain and swelling COMPARISON: Ankle Left 3 View dated 10/24/2019 FINDINGS: Mild tibiotalar arthritic changes are present. A moderate to large posterior calcaneal spu r. Mild soft tissue swelling is noted. No acute fracture evident.
[2020-07-16 13:46] LABS: Potassium 3.8 mmol/L (3.5-5.1)
[2020-07-16 17:45] LABS: Potassium 3.9 mmol/L (3.5-5.1)
[2020-07-16] MEDS ORDERED: ACETAMINOPHEN 325 MG TABLET PO PRN (21:37)
[2020-07-16 22:15] LABS: Potassium 3.4 mmol/L (3.5-5.1)
[2020-07-17] MEDS ORDERED: D5 0.45 NS 1,000 ML IV ONE (00:53)
[2020-07-17 01:29] LABS: Potassium 3.2 mmol/L (3.5-5.1)
[2020-07-17] MEDS: D5 0.45 NS 1,000 ML IV SCH (03:40)
[2020-07-17 05:26] LABS: Basophils % 0.8 % (0-1.3); Hematocrit 36.8 % (39.6-49.0); Lymphocytes % 24.6 % (15.3-44.8); MPV 9.2 fL (7.6-11.3); RBC Red Blood Cell Count 5.07 M/uL (4.33-5.43)
[2020-07-17 05:43] LABS: Magnesium 2.1 mg/dL (1.8-2.4); Phosphorus 1.9 mg/dL (2.5-4.9); Potassium 3.4 mmol/L (3.5-5.1)
[2020-07-17] MEDS: CEFTRIAXONE/SWI 1gm 1 GM/10 ML SYR IV SCH (06:29)
[2020-07-17] MEDS: AZITHROMYCIN IV 500 MG in NA CHLORIDE 0.9% 250 ML IVPB SCH (06:34)
[2020-07-17] MEDS ORDERED: CEFTRIAXONE/SWI 1gm 1 GM/10 ML SYR ONE (06:39)
[2020-07-17] MEDS ORDERED: AZITHROMYCIN 500 MG INJ IVPB ONE (06:40)
[2020-07-17] MEDS ORDERED: NA CHLORIDE 0.9% 250 ML ONE (06:40)
[2020-07-17 07:20] VITALS: BMI 49.1
[2020-07-17] MEDS ORDERED: D50W 25 GM/50 ML SYRINGE/VIAL IV PRN (08:07)
[2020-07-17] MEDS ORDERED: GLUCAGON 1 MG/VIAL IM PRN (08:07)
[2020-07-17] MEDS ORDERED: HEPARIN 5000 UNIT/ML 1 ML VIAL ONE (08:28)
[2020-07-17] MEDS: DOCUSATE NA 100 MG CAP PO SCH ×2 (08:34→20:14)
[2020-07-17] MEDS: VITAMIN D 5,000 UNIT CAP PO SCH (08:34)
[2020-07-17] MEDS: HEPARIN 5000 UNIT/ML 1 ML VIAL SQ SCH ×2 (08:45→20:20)
[2020-07-17] MEDS: NPH (HUMAN) 100 UNITS/ML INSULIN SQ SCH ×2 (08:49→16:55)
[2020-07-17] MEDS ORDERED: NPH (HUMAN) 100 UNITS/ML INSULIN SQ ONE (09:01)
[2020-07-17] MEDS: INSULIN -REGULAR HUMAN 50 UNIT/0.5 ML ML SQ SCH ×3 (11:12→20:14)
[2020-07-17] MEDS ORDERED: INSULIN -REGULAR HUMAN 50 UNIT/0.5 ML ML ONE (11:24)
--- NOTE | 2020-07-17 14:32 | P.PN ---
Subjective Date of Service: 07/17/20 Chief Complaint: DKA Subjective: Improving (Transitioned to oral diet and subcutaneous insulin) Physical Examination - Vital Signs Temperature: 99 F Blood Pressure: 147/73 Pulse: 105 Respirations: 14 Pulse Ox (%): 98 - Physical Exam General: Alert, In no apparent distress, Cooperative HEENT: Atraumatic, Normocephalic, EOMI Neck: Supple Respiratory: Clear to auscultation bilaterally, Normal air movement Cardiovascular: No edema, Normal pulses, Regular rate/rhythm, Normal S1 S2 Gastrointestinal: Normal bowel sounds, Soft and benign, Non-distended, No tenderness Musculoskeletal: No clubbing, No swelling, No contractures, No erythema, No tenderness, No warmth Integumentary: No rashes, No breakdown, No significant lesion, No tenderness/swelling, No erythema, No warmth, No cyanosis Neurological: Normal speech, Sensation intact, Normal affect Assessment & Plan - Problems (Diagnosis) (1) DKA (diabetic ketoacidoses) Current Visit: Yes Status: Acute (2) Morbid obesity with BMI of 45.0-49.9, adult Current Visit: Yes Status: Acute (3) SARAH (acute kidney injury) Current Visit: Yes Status: Acute Physician Review Additional Text: Assessment Patient is a 29-year-old male with morbid obesity, diabetes mellitus noncompliant with medications. He is currently admitted with DKA. He is on insulin drip. Severe and rising leukocytosis on admission. Chest x-ray, blood cultures and UA negative to date. DKA SIRS with organ damage SARAH Medication noncompliance Morbid obesity PLAN Transition to subcutaneous insulin along with insulin sliding Monitoring glucose ACHS Adjust insulin dosage as needed Most likely discharge tomorrow
--- NOTE | 2020-07-17 23:13 | WHHP ---
Date of Admission: 07/14/2020 Subjective: Patient is seen at the bedside. No events reported. The patient feels well. He denies any fevers, chills, chest pain, shortness of breath, nausea, vomiting, or diarrhea. Objective: Vital Signs: Blood pressure 147/73, pulse 105, temperature 99. Input and output; 6737 i n, 4800 out. General: Morbidly obese, no acute distress. Heart: Distant heart sounds. Regular rate and rhythm. Lungs: Clear to auscultation. Abdomen: Soft. Extremities: Trace to 1+ edema. Laboratory Data: Reviewed. Potassium 3.4, BUN is 8, creatinine 1.31, magnesium 1.9. Impression: 1.Diabetic ketoacidosis. 2.Acute kidney injury. Possible underlying chronic kidney disease. 3.Hypokalemia. 4.Hypomagnesemia. Plan: The patient's renal function is stabilizing. Avoid NSAIDs, avoid contrast. Potassium 20 mEq daily has been ordered, also magnesium has been repleted by primary team. I will continue to follow. CHAUNCEY Voice ID: [id number]
[2020-07-18] MEDS: CEFTRIAXONE/SWI 1gm 1 GM/10 ML SYR IV SCH (05:05)
[2020-07-18] MEDS: AZITHROMYCIN IV 500 MG in NA CHLORIDE 0.9% 250 ML IVPB SCH (05:05)
[2020-07-18 06:10] LABS: Potassium 3.4 mmol/L (3.5-5.1)
[2020-07-18] MEDS ORDERED: POTASSIUM CL SA 10 MEQ TAB PO ONE ×2 (06:42→09:00)
[2020-07-18] MEDS ORDERED: NPH (HUMAN) 100 UNITS/ML INSULIN SQ SCH ×2 (06:44→08:00)
[2020-07-18] MEDS ORDERED: D50W 25 GM/50 ML SYRINGE/VIAL IV PRN (06:44)
[2020-07-18] MEDS ORDERED: GLUCAGON 1 MG/VIAL IM PRN (06:44)
[2020-07-18] MEDS: DOCUSATE NA 100 MG CAP PO SCH (08:03)
[2020-07-18] MEDS: VITAMIN D 5,000 UNIT CAP PO SCH (08:04)
[2020-07-18] MEDS: HEPARIN 5000 UNIT/ML 1 ML VIAL SQ SCH (08:06)
[2020-07-18] MEDS: INSULIN -REGULAR HUMAN 50 UNIT/0.5 ML ML SQ SCH (08:07)
[2020-07-18 08:15] VITALS: O2SAT 98
--- NOTE | 2020-07-18 08:16 | P.DS ---
Admission Date: 07/14/20 Discharge Date: 07/18/20 Disposition: ROUTINE DISCHARGE Discharge Condition: GOOD Reason for Admission: DKA - Problems (1) DKA (diabetic ketoacidoses) Current Visit: Yes Status: Acute (2) Morbid obesity with BMI of 45.0-49.9, adult Current Visit: Yes Status: Acute (3) SARAH (acute kidney injury) Current Visit: Yes Status: Acute Brief History of Present Illness: Please refer to H&P Hospital Course: Patient was admitted for DKA. He remained in ICU for insulin infusion. His A1c was 12.4. He is insulin naive. He was started on NPH, which was titrated as appropriate. He will be discharged to follow up with his PCP. Spent time to camp head counselor patient on weight loss. Vital Signs/Physical Exam: Temp Pulse Resp BP Pulse Ox 97.7 F 92 H 18 130/67 97 07/18/20 05:00 07/18/20 05:00 07/18/20 05:00 07/18/20 05:00 07/18/20 05:00 General: In no apparent distress, Cooperative, Obese HEENT: Atraumatic, Normocephalic, EOMI Neck: Supple Cardiovascular: No edema, Normal pulses, Regular rate/rhythm, Normal S1 S2 Gastrointestinal: Normal bowel sounds, Soft and benign, Non-distended Neurological: Normal speech, Sensation intact, Normal affect Laboratory Data at Discharge: WBC 8.1 K/uL (4.3-10.9) D 07/17/20 05:03 Hgb 11.7 g/dL (13.6-17.9) L 07/17/20 05:03 Hct 36.8 % (39.6-49.0) L 07/17/20 05:03 Plt Count 219 K/uL (152-406) 07/17/20 05:03 Sodium 137 mmol/L (136-145) 07/18/20 05:18 Potassium 3.4 mmol/L (3.5-5.1) L 07/18/20 05:18 BUN 8 mg/dL (7-18) 07/18/20 05:18 Creatinine 1.31 mg/dL (0.55-1.3) H 07/18/20 05:18 Glucose 234 mg/dL (74-106) H 07/18/20 05:18 Phosphorus 1.9 mg/dL (2.5-4.9) L 07/17/20 05:03 Magnesium 2.1 mg/dL (1.8-2.4) 07/17/20 05:03 Total Bilirubin 0.4 mg/dL (0.2-1.0) 07/14/20 21:20 AST 11 U/L (15-37) L 07/14/20 21:20 ALT 26 U/L (12-78) 07/14/20 21:20 Alkaline Phosphatase 151 U/L (45-117) H 07/14/20 21:20 Troponin I < 0.02 ng/mL (0.0-0.045) 07/14/20 21:20 Triglycerides 527 mg/dL (<150) H 07/15/20 02:56 Cholesterol 303 mg/dL (<200) H 07/15/20 02:56 LDL Cholesterol Direct 168 mg/dL (100-129) H 07/15/20 02:56 HDL Cholesterol 34 mg/dL (40-60) L 07/15/20 02:56 Cholesterol/HDL Ratio 8.91 07/15/20 02:56 Lipase 177 U/L (73-393) 07/14/20 21:20 Home Medications: Insulin NPH Human [Novolin N (Humulin N)*] 15 units SQ BIDWM #30 ml 07/18/20 New Medications: Insulin NPH Human [Novolin N (Humulin N)*] 15 units SQ BIDWM #30 ml Diet: ADA
[2020-07-18] MEDS ORDERED: POTASSIUM CL SA 10 MEQ TAB PO SCH (09:00)
[2020-07-18 09:23] VITALS: BP 138/92; TEMP 99.2
== END 2020-07-18 09:42 | disposition home or self-care (01) | DRG 637 ==
LOC: ER 18:23 → ERHOLD 22:46 → 2ND 07-17 11:59
PROVIDERS: ADMIT Internal Medicine; ATTEND Internal Medicine
DX: E11.10 Type 2 diabetes mellitus with ketoacidosis without coma (principal); R65.11 Systemic inflammatory response syndrome (SIRS) of non-infectious origin with acute organ dysfunction; Z68.42 Body mass index [BMI] 45.0-49.9, adult; N17.9 Acute kidney failure, unspecified; E87.1 Hypo-osmolality and hyponatremia; E66.01 Morbid (severe) obesity due to excess calories; F17.210 Nicotine dependence, cigarettes, uncomplicated; F10.10 Alcohol abuse, uncomplicated; D72.829 Elevated white blood cell count, unspecified; E87.5 Hyperkalemia; E83.51 Hypocalcemia; N18.30 Chronic kidney disease, stage 3 unspecified; E11.22 Type 2 diabetes mellitus with diabetic chronic kidney disease; R00.0 Tachycardia, unspecified; T38.3X6A Underdosing of insulin and oral hypoglycemic [antidiabetic] drugs, initial encounter; Z91.128 Patient's intentional underdosing of medication regimen for other reason; Z91.14 Patient's other noncompliance with medication regimen; Z20.828 Contact with and (suspected) exposure to other viral communicable diseases
CPT/HCPCS: 36415; 70450; 71045; 80048; 80061; 80076; 80307; 81001; 82010; 82805; 82947; 83036; 83605; 83690; 83735; 84100; 84132; 84484; 85025; 87040; 93005; 96372; 96374; 99285; J0456; J0696; J1644; J1815; J7030; J7040; J7050; J7799; U0003